=== PATIENT | female | born 1965 | race African-American/Black ===

== ENCOUNTER 2020-10-26 10:20 | Emergency (ER) | payer OTHER ==
[~2020-10-26] VITALS: Ht 167.6 cm; Wt 113.4 kg
[2020-10-26] MEDS ORDERED: ACETAMINOPHEN 325MG TABLET PO ONE (11:00)
[2020-10-26] MEDS ORDERED: ALBUTEROL 6.7GM HFA INHALER ORI ONE (11:30)
[2020-10-26] MEDS ORDERED: AZITHROMYCIN 500 MG TABLET PO ONE (11:45)
[2020-10-26] MEDS ORDERED: PREDNISONE 20MG TABLET PO ONE (11:45)
[2020-10-26 16:45] VITALS: BP 155/70
== END 2020-10-26 16:47 | disposition home or self-care (01) ==
LOC: ER 10:20 → SUPCPDRO 10-27 01:08
DX: J06.9 Acute upper respiratory infection, unspecified (principal); B34.9 Viral infection, unspecified; Z20.828 Contact with and (suspected) exposure to other viral communicable diseases; Z88.5 Allergy status to narcotic agent; Z98.890 Other specified postprocedural states
CPT/HCPCS: 71045; 87804; 99284; C9803; J7512; U0003